=== PATIENT | female | born 1975 | race American Indian/Alaskan Native ===

== ENCOUNTER 2016-11-17 07:21 | Emergency (ER) | payer OTHER ==
[2016-11-17 07:22] VITALS: BMI 28.1
[2016-11-17] MEDS ORDERED: Morphine 4 MG/ML VIAL ONE (08:01)
[2016-11-17] MEDS ORDERED: Sodium Chloride 0.9% 1,000 ML ONE (08:02)
[2016-11-17] MEDS: Sodium Chloride 0.9% 1,000 ML IV ONE ×2 (08:04→08:10)
[2016-11-17 08:09] LABS: BASO # 0.1 K/uL (0.0-0.2); BASO % 0.9 % (0.0-2.0); EOS # 0.2 K/uL (0.0-0.7); EOS % 1.6 % (0.0-4.0); HEMATOCRIT 31.1 % (34.0-47.0); LYMPH # 3.8 K/uL (1.0-4.3); LYMPH % 38.8 % (20.0-40.0); MEAN CELL VOLUME 76.8 fL (81.0-99.0); MEAN CORPUSCULAR HEMOGLOBIN 24.2 pg (27.0-31.0); MEAN CORPUSCULAR HGB CONC 31.5 g/dL (33.0-37.0); MEAN PLATELET VOLUME 8.4 fL (7.2-11.7); MONO # 0.6 K/uL (0.0-0.8); MONO % 5.6 % (0.0-10.0); RED CELL DISTRIBUTION WIDTH 17.9 % (11.5-14.5); WHITE BLOOD COUNT 9.8 K/uL (4.8-10.8)
[2016-11-17 08:15] LABS: RBC URINE 57 /hpf (0-3); URINE BACTERIA RARE (<OCC); URINE BILIRUBIN NEGATIVE (NEGATIVE); URINE BLOOD 2+ (NEGATIVE); URINE COLOR Red (YELLOW); URINE GLUCOSE (UA) NORMAL (Normal); URINE KETONE NEGATIVE (NEGATIVE); URINE LEUKOCYTE ESTERASE NEG Leu/uL (Negative); URINE PROTEIN 2+ mg/dL (NEGATIVE); URINE UROBILINOGEN NORMAL mg/dL (0.2-1.0); WBC URINE 7 /hpf (0-5)
--- NOTE | 2016-11-17 08:17 | C.PDOC ---
History Of Present Illness 41 y/o female presents to the ED complaining of right sided "body pain" x 1 day. She notes right flank pain that radiates into the abdomen and down the right leg. Patient also reports that she is on her menstrual period and she is experiencing heavier vaginal bleeding than usual with clots. Patient has history of hyperension, asmtha, diabetes, hemorrhoids, and kidney stents placed last year for pyleonephritis. Patient denies fever, vaginal discharge, hematuria , dysuria, nausea, vomiting, chest pain, shortness of breath, or other complaints. Time Seen by Provider: 11/17/16 07:26 Chief Complaint (Nursing): Abdominal Pain Past Medical History Vital Signs: Last Vital Signs Temp 98.3 F 11/17/16 07:25 Pulse 80 11/17/16 07:25 Resp 16 11/17/16 07:25 BP 145/85 11/17/16 07:25 Pulse Ox 98 11/17/16 07:25 - Medical History PMH: Asthma, HTN, Kidney Stones - [facility] Procedures REMOV URETERAL DRAIN (11/26/14) RETROGRADE PYELOGRAM (11/26/14) URETERAL CATHETERIZATION (10/29/14) URETEROSCOPY (11/26/14) Family History: States: Unknown Family Hx - Social History Hx Tobacco Use: No Hx Alcohol Use: No Hx Substance Use: No - Immunization History Hx Tetanus Toxoid Vaccination: Yes Hx Influenza Vaccination: No Hx Pneumococcal Vaccination: No ED Course And Treatment - Laboratory Results Result Diagrams: 11/17/16 08:03 O2 Sat by Pulse Oximetry: 98
[2016-11-17 08:20] LABS: CHLORIDE 102 mmol/L (98-107); SODIUM 139 mmol/L (132-148)
[2016-11-17 08:21] LABS: POTASSIUM 4.2 mmol/L (3.6-5.2)
[2016-11-17 08:22] LABS: GFR AFRICAN-AMERICAN > 60
--- NOTE | 2016-11-17 08:22 | C.PDOC ---
History Of Present Illness 41 y/o female presents to the ED complaining of right sided "body pain" x 1 day. She notes right flank pain that radiates into the abdomen and down the right leg. Patient also reports that she is on her menstrual period and she is experiencing heavier vaginal bleeding than usual with clots. Patient has history of hypertension, asthma, diabetes, hemorrhoids, and kidney stents placed last year for pyelonephritis. Patient denies fever, vaginal discharge, hematuria, dysuria, nausea, vomiting, chest pain, shortness of breath, or other complaints. Time Seen by Provider: 11/17/16 07:26 Chief Complaint (Nursing): Abdominal Pain History Per: Patient History/Exam Limitations: no limitations Onset/Duration Of Symptoms: Days (1), Gradual, Persistent Current Symptoms Are (Timing): Still Present Recent travel outside of the [place]: No Past Medical History Reviewed: Historical Data, Nursing Documentation, Vital Signs Vital Signs: Last Vital Signs Temp 97.9 F 11/17/16 11:12 Pulse 66 11/17/16 11:12 Resp 20 11/17/16 11:12 BP 110/67 11/17/16 11:12 Pulse Ox 99 11/17/16 11:12 - Medical History PMH: Asthma, HTN, Kidney Stones Other Surgeries: HEMORROIDECTOMY X2 - 11/20 AND THEN 12/20, ureteral stent - [facility] Procedures REMOV URETERAL DRAIN (11/26/14) RETROGRADE PYELOGRAM (11/26/14) URETERAL CATHETERIZATION (10/29/14) URETEROSCOPY (11/26/14) Family History: States: No Known Family Hx - Social History Hx Tobacco Use: Yes (former smoker) Hx Alcohol Use: No Hx Substance Use: No - Immunization History Hx Tetanus Toxoid Vaccination: Yes Hx Influenza Vaccination: No Hx Pneumococcal Vaccination: No Review Of Systems Except As Marked, All Systems Reviewed And Found Negative. Constitutional: Negative for: Fever Cardiovascular: Negative for: Chest Pain Respiratory: Negative for: Shortness of Breath Gastrointestinal: Positive for: Abdominal Pain (right-sided). Negative for: Nausea, Vomiting Genitourinary: Positive for: Vaginal Bleeding (w/ clots). Negative for: Dysuria , Hematuria, Vaginal Discharge Musculoskeletal: Positive for: Leg Pain (right), Other (right flank pain) Physical Exam - Physical Exam Appears: Non-toxic, No Acute Distress Skin: Normal Color, Warm, Dry Head: Atraumatic, Normacephalic Neck: Normal ROM, Supple Chest: Symmetrical Cardiovascular: Rhythm Regular Respiratory: Normal Breath Sounds, No Rales, No Rhonchi, No Wheezing Gastrointestinal/Abdominal: Soft, Tenderness (suprapubic), No Guarding, No Rebound Back: Other (right flank tenderness) Extremity: Normal ROM, No Tenderness, No Swelling Neurological/Psych: Oriented x3, Normal Speech, Normal Cognition, Normal Sensation ED Course And Treatment - Laboratory Results Result Diagrams: 11/17/16 08:03 11/17/16 08:03 Lab Interpretation: Normal Urine POC: Negative O2 Sat by Pulse Oximetry: 98 (ra) Pulse Ox Interpretation: Normal - CT Scan/US CT Abd/Pelvis Other Rad Studies (CT/US): Read By Radiologist, Radiology Report Reviewed CT/US Interpretation: Accession No. : [id number]. Patient Name / ID : FRANKLIN BAKER / [id number]. Exam Date : 11/17/2016 08:40:08 ( Approved ). Study Comment : Sex / Age : F / 41Y. Creator : Baljit Figueredo MD. Dictator : Baljit Figueredo MD. Family Centered Specialist : Intern Product Marketing Manager : Baljit Figueredo MD. Approver2 : Report Date : 11/17/2016 10:04:18. My Comment : . PROCEDURE: CT Abdomen and Pelvis without intravenous contrast. HISTORY: Abdominal pain. COMPARISON : None. TECHNIQUE: Multiple contiguous axial images were performed through the abdomen and pelvis without the use of intravenous contrast. Subsequently, sagittal and coronal reformatted images were obtained. Radiation dose: Total exam DLP = 1016 mGy-cm. This CT exam was performed using one or more of the following dose reduction techniques: Automated exposure control, adjustment of the mA and/or kV according to patient size, and/or use of iterative reconstruction technique. FINDINGS: LOWER THORAX: Atelectasis at the lung bases. LIVER: Unremarkable. No gross lesion or ductal dilatation. GALLBLADDER AND BILE DUCTS: Unremarkable. PANCREAS: Unremarkable. No gross lesion or ductal dilatation. SPLEEN: Unremarkable. ADRENALS: Unremarkable. No mass. KIDNEYS AND URETERS: Moderate right renal hydroureteronephrosis. No discrete calculus visualized within the renal collecting system or ureter. A few punctate calcified phleboliths traverse along the course of the distal right ureter. This may represent a recently passed calculus. Clinical correlation. Mild left renal hydroureteronephrosis without evidence of gross calculus. VASCULATURE: Unremarkable. No aortic aneurysm. BOWEL: Unremarkable. No obstruction. No gross mural thickening. Scattered diverticulosis. Small hiatal hernia. APPENDIX: Unremarkable. Normal appendix. PERITONEUM: Unremarkable. No free fluid. No free air. LYMPH NODES: Unremarkable. No enlarged lymph nodes. BLADDER: Unremarkable. REPRODUCTIVE: Heterogeneous and prominent uterus. Bilateral adnexa not well identified. BONES: No acute fracture. OTHER FINDINGS: Mild calcification within the aorta. IMPRESSION: Moderate right renal hydroureteronephrosis. No discrete calculus visualized within the renal collecting system or ureter. A few punctate calcified phleboliths traverse along the course of the distal right ureter. This may represent a recently passed calculus. Clinical correlation. Mild left renal hydroureteronephrosis without evidence of gross calculus. Additional findings as above. Progress Note: CT Abdomen/Pelvis, Blood Work, Urinalysis, and Urine HCG were ordered. Patient was treated with Morphine IVP, Toradol IVP, and IV Fluids. On re-evaluation resting comfortable, in no distress, abdomen soft Reassessment Condition: Improved Disposition Counseled Patient/Family Regarding: Studies Performed, Diagnosis, Need For Followup, Rx Given - Disposition Referrals: [facility] [Outside] [facility] [Outside] Disposition: HOME/ ROUTINE Disposition Time: 10:50 Condition: IMPROVED Additional Instructions: Follow up with PMD or clinic for further evaluation Prescriptions: Naproxen [Naprosyn] 1 tab PO BID PRN #25 tab PRN Reason: Pain Instructions: Abdominal Pain (ED) Forms: Work Excuse - POA Present On Arrival: None - Clinical Impression Clinical Impression: Abdominal pain - PA / [employer] / Resident Statement MD/DO has reviewed & agrees with the documentation as recorded. - Scribe Statement The provider has reviewed the documentation as recorded by the Scribe (Betty Ramirez) All medical record entries made by the Scribe were at my direction and personally dictated by me. I have reviewed the chart and agree that the record accurately reflects my personal performance of the history, physical exam, medical decision making, and the department course for this patient. I have also personally directed, reviewed, and agree with the discharge instructions and disposition.
[2016-11-17 08:23] LABS: ALB/GLOB RATIO 1.2 (1.0-2.1); ALKALINE PHOSPHATASE 112 U/L (38-126); ALT/SGPT 17 U/L (9-52); AST/SGOT 22 U/L (14-36); BILIRUBIN,TOTAL 0.3 mg/dL (0.2-1.3); BLOOD UREA NITROGEN 10 mg/dL (7-17); CALCIUM 8.3 mg/dl (8.6-10.4); CARBON DIOXIDE 23 mmol/L (22-30); GLUCOSE,RANDOM 100 mg/dL (65-105); TOTAL PROTEIN 7.3 g/dL (6.3-8.3)
--- NOTE | 2016-11-17 10:05 | CT ---
PROCEDURE: CT Abdomen and Pelvis without intravenous contrast HISTORY: Abdominal pain COMPARISON: None. TECHNIQUE: Multiple contiguous axial images were performed through the abdomen and pelvis without the use of intravenous contrast. Subsequently, sagittal and coronal reformatted images were obtained. Radiation dose: Total exam DLP = 1016 mGy-cm. This CT exam was performed using one or more of the following dose reduction techniques: Automated exposure control, adjustment of the mA and/or kV according to patient size, and/or use of iterative reconstruction technique. FINDINGS: LOWER THORAX: Atelectasis at the lung bases. LIVER: Unremarkable. No gross lesion or ductal dilatation. GALLBLADDER AND BILE DUCTS: Unremarkable. PANCREAS: Unremarkable. No gross lesion or ductal dilatation. SPLEEN: Unremarkable. ADRENALS: Unremarkable. No mass. KIDNEYS AND URETERS: Moderate right renal hydroureteronephrosis. No discrete calculus visualized within the renal collecting system or ureter. A few punctate calcified phleboliths traverse along the course of the distal right ureter. This may represent a recently passed calculus. Clinical correlation. Mild left renal hydroureteronephrosis without evidence of gross calculus. VASCULATURE: Unremarkable. No aortic aneurysm. BOWEL: Unremarkable. No obstruction. No gross mural thickening. Scattered diverticulosis. Small hiatal hernia. APPENDIX: Unremarkable. Normal appendix. PERITONEUM: Unremarkable. No free fluid. No free air. LYMPH NODES: Unremarkable. No enlarged lymph nodes. BLADDER: Unremarkable. REPRODUCTIVE: Heterogeneous and prominent uterus. Bilateral adnexa not well identified. BONES: No acute fracture. OTHER FINDINGS: Mild calcification within the aorta. IMPRESSION: Moderate right renal hydroureteronephrosis. No discrete calculus visualized within the renal collecting system or ureter. A few punctate calcified phleboliths traverse along the course of the distal right ureter. This may represent a recently passed calculus. Clinical correlation. Mild left renal hydroureteronephrosis without evidence of gross calculus. Additional findings as above.
[2016-11-17 11:13] VITALS: BP 110/67; PULSE 66; RESP 20; TEMP 97.9
[2016-11-17 15:12] VITALS: O2SAT 98
== END 2016-11-17 11:51 | disposition home or self-care (01) ==
LOC: C.ER 07:21
DX: R10.30 Lower abdominal pain, unspecified (principal)
CPT/HCPCS: 74176; 80053; 81001; 83690; 84703; 85025; 96361; 96374; 96375; 99284; J1885; J2270; J7040

== ENCOUNTER 2018-11-16 23:19 | Emergency (ER) | payer OTHER ==
[2018-11-16 23:19] VITALS: BMI 28.1
--- NOTE | 2018-11-17 00:09 | C.PDOC ---
History Of Present Illness 43 year old female presents to the ED c/o palpitations that have been on and off for the past 3 days. Patient denies fever, chills, headache, visual changes, CP, SOB, weakness, numbness. Chief Complaint (Nursing): Palpitations History Per: Patient History/Exam Limitations: no limitations Onset/Duration Of Symptoms: Days Current Symptoms Are (Timing): Still Present Quality: "Pain" Recent travel outside of the [place]: No Additional History Per: Patient Past Medical History Reviewed: Historical Data, Nursing Documentation, Vital Signs Vital Signs: Last Vital Signs Temp 98.2 F 11/16/18 23:23 Pulse 84 11/16/18 23:23 Resp 16 11/16/18 23:23 BP 179/83 H 11/16/18 23:23 Pulse Ox 100 11/16/18 23:23 - Medical History PMH: Asthma, HTN, Kidney Stones Surgical History: No Surg Hx - [facility] Procedures REMOV URETERAL DRAIN (11/26/14) RETROGRADE PYELOGRAM (11/26/14) URETERAL CATHETERIZATION (10/29/14) URETEROSCOPY (11/26/14) Family History: States: Unknown Family Hx - Social History Hx Tobacco Use: Yes (former smoker) Hx Alcohol Use: No Hx Substance Use: No - Immunization History Hx Tetanus Toxoid Vaccination: Yes Hx Influenza Vaccination: No Hx Pneumococcal Vaccination: No Review Of Systems Constitutional: Negative for: Fever, Chills Eyes: Negative for: Vision Change Cardiovascular: Positive for: Palpitations. Negative for: Chest Pain Respiratory: Negative for: Cough, Shortness of Breath Gastrointestinal: Negative for: Nausea, Vomiting, Abdominal Pain Skin: Negative for: Rash Neurological: Negative for: Weakness, Numbness, Headache, Dizziness Physical Exam - Physical Exam Appears: Non-toxic, No Acute Distress Skin: Normal Color, Warm, Dry Head: Atraumatic, Normacephalic Eye(s): bilateral: Normal Inspection Neck: Normal ROM, Supple Chest: Symmetrical Cardiovascular: Rhythm Regular (premature beats), No Murmur Respiratory: Normal Breath Sounds, No Rales, No Rhonchi, No Wheezing Gastrointestinal/Abdominal: Soft, No Tenderness, No Guarding, No Rebound Extremity: Normal ROM, No Tenderness, No Swelling Neurological/Psych: Oriented x3, Normal Speech, Normal Cognition Gait: Steady ED Course And Treatment - Laboratory Results Result Diagrams: 11/17/18 00:15 11/17/18 00:15 ECG: Interpreted By Me, Viewed By Me ECG Rhythm: Sinus Rhythm ECG Interpretation: Normal, No Acute Changes Interpretation Of ECG: Sinus rhythm with premature supraventricular complexes, otherwise normal tracings. Rate From EC O2 Sat by Pulse Oximetry: 100 (ON RA) Pulse Ox Interpretation: Normal - Radiology CXR: Interpreted by Me, Viewed By Me CXR Interpretation: Yes: No Acute Disease, Other (mormal chest film.). No: Infiltrates, Cardiomegaly Medical Decision Making Medical Decision Making: Plan: * EKG * Labs * CXR * UA Disposition Counseled Patient/Family Regarding: Diagnosis - Disposition Referrals: [facility] [Outside] Disposition: HOME/ ROUTINE Disposition Time: 01:48 Condition: STABLE Instructions: Palpitations (DC), Arrhythmias (DC) Forms: [employer] ([place]) - POA Present On Arrival: None - Clinical Impression Clinical Impression: Palpitations, Atrial arrhythmia - Scribe Statement The provider has reviewed the documentation as recorded by the Scribe Raymond Orr All medical record entries made by the Scribe were at my direction and personally dictated by me. I have reviewed the chart and agree that the record accurately reflects my personal performance of the history, physical exam, medical decision making, and the department course for this patient. I have also personally directed, reviewed, and agree with the discharge instructions and disposition.
[2018-11-17 00:19] LABS: BASO # 0.1 K/uL (0.0-0.2); BASO % 0.9 % (0.0-2.0); EOS # 0.2 K/uL (0.0-0.7); EOS % 1.5 % (0.0-4.0); HEMOGLOBIN 11.6 g/dL (11.0-16.0); LYMPH # 5.4 K/uL (1.0-4.3); LYMPH % 46.6 % (20.0-40.0); MEAN CELL VOLUME 86.5 fL (81.0-99.0); MEAN CORPUSCULAR HEMOGLOBIN 28.4 pg (27.0-31.0); MEAN CORPUSCULAR HGB CONC 32.8 g/dL (33.0-37.0); MEAN PLATELET VOLUME 8.8 fL (7.2-11.7); MONO # 0.7 K/uL (0.0-0.8); MONO % 6.3 % (0.0-10.0); NEUT # 5.2 K/uL (1.8-7.0); NEUT % 44.7 % (50.0-75.0); NRBC % 0.2 % (0.0-2.0); RBC 4.07 Mil/uL (3.80-5.20); RED CELL DISTRIBUTION WIDTH 14.7 % (11.5-14.5); WHITE BLOOD COUNT 11.7 K/uL (4.8-10.8)
[2018-11-17 00:32] LABS: ALB/GLOB RATIO 1.4 (1.0-2.1); ALBUMIN 4.4 g/dL (3.5-5.0); ALT/SGPT 19 U/L (9-52); AST/SGOT 33 U/L (14-36); BLOOD UREA NITROGEN 11 mg/dL (7-17); CALCIUM 9.2 mg/dl (8.6-10.4); GFR NON-AFRICAN AMERICAN > 60
[2018-11-17 01:02] LABS: T3 2.19 nmol/L (1.49-2.60)
[2018-11-17 02:09] VITALS: BP 154/95; PULSE 83; RESP 20; TEMP 98.4; O2SAT 97
--- NOTE | 2018-11-17 09:47 | RAD ---
Date of service: 11/17/2018 HISTORY: Palpitations COMPARISON: No prior. TECHNIQUE: Chest PA and lateral FINDINGS: LINES AND TUBES: None. LUNG AND PLEURA: The lungs are well inflated and clear. No pleural effusion or pneumothorax. HEART AND MEDIASTINUM: The heart is not enlarged. No aortic atherosclerotic calcifications present. The hilar and mediastinal contours are within normal limits. SKELETAL STRUCTURES: The bony structures are within normal limits for the patient's age. VISUALIZED UPPER ABDOMEN: Normal. OTHER FINDINGS: None. IMPRESSION: No active pulmonary disease.
--- NOTE | 2018-11-17 12:42 | CARD ---
APPROVED REPORT Date of service: 11/16/2018 EKG Measurement Heart [id number] <Conclusion> Atrial fibrillation with rapid v-rate, afib & v-rate >120 Otherwise normal ECG
== END 2018-11-17 02:12 | disposition home or self-care (01) ==
LOC: C.ER 23:19
DX: I49.9 Cardiac arrhythmia, unspecified (principal); R00.2 Palpitations